=== PATIENT | female | born 1985 ===

== ENCOUNTER 2018-11-23 21:45 | Emergency (ER) | payer OTHER ==
--- NOTE | 2018-11-23 21:56 | EDPHY ---
H & P Time Seen by Provider: 11/23/18 21:55 HPI/ROS: CHIEF COMPLAINT: Fever, cold symptoms, facial pain HISTORY OF PRESENT ILLNESS: 33-year-old female presents reporting that she has had 5 days of the nasal congestion, sinus pain, facial pain, headache, and fevers. Slight sore throat which has improved. No significant coughing. No nausea or vomiting. Patient has history of seasonal allergies and uses Flonase and Estrellita on a daily basis. She has also recently started on a allergy therapy to desensitized her to various tree pollens. She states when she does this therapy, sometimes her sinus congestion symptoms are worsened. Also reports some pain in her right ear. She denies chest pain or shortness of breath, no palpitations, vomiting, diarrhea, urinary complaints, or lightheadedness. She did get a flu vaccination this year. REVIEW OF SYSTEMS: A comprehensive 10 system review of systems was reviewed and is otherwise negative aside from elements mentioned in the history of present illness and medical decision making. PAST MEDICAL HISTORY: Allergies SOCIAL HISTORY: Nonsmoker, no marijuana, no illicit drugs, recently moved here from [facility] VITAL SIGNS: see nurse's notes. GENERAL: Well-developed, well-nourished, in no acute distress. Chatty, conversant, sounds congested. HEENT: Atraumatic Eyes: PERRL, EOMI, no conjunctival injection. Tenderness to percussion across the frontal sinuses and maxillary sinuses. Ears: Right TM is partially occluded, left TM is clear. Nose: No discharge. Mouth: moist mucous membranes. Pharynx: Slight erythema, no exudates, no swelling, no abscess. Uvula is midline. NECK: Supple, no adenopathy, no meningismus, no tenderness. Negative Kernig's and Brudzinski's. LUNGS: Clear to auscultation bilaterally, no wheezes, rhonchi or rales. CARDIAC: Regular rate and rhythm, no rubs, murmurs or gallops. ABDOMEN: Soft, nontender, bowel sounds normal. BACK: No CVA tenderness. EXTREMITIES: Normal, no edema, FROM. NEURO: Alert and oriented, grossly nonfocal. SKIN: Warm and dry, no rash. PSYCHIATRIC: Normal mentation, no agitation. Constitutional: Initial Vital Signs Temperature (C) 36.7 C 11/23/18 22:01 Heart Rate 82 02/03/19 22:01 Respiratory Rate 16 11/23/18 22:01 Blood Pressure 126/82 H 11/23/18 22:01 O2 Sat (%) 99 11/23/18 22:01 O2 Delivery Mode Room Air Allergies/Adverse Reactions: No Known Allergies Allergy (Unverified 11/23/18 22:00) Home Medications: Medication Instructions Recorded Amoxicillin Trihydrate [Amoxil] 500 mg PO TID 7 Days cap 11/23/18 Fluconazole [Diflucan] 200 mg PO ONCE #1 tablet 11/23/18 Fluticasone Nasal [Flonase Nasal 11/23/18 [place]] P-EPHED HCL/FEXOFENADINE HCL 11/23/18 [ESTRELLITA-D 12 HOUR TABLET] Medical Decision Making ED Course/Re-evaluation: 33-year-old female presenting with fever and significant facial pain and congestion. She did receive a flu vaccination this year. No symptoms suggestive of strep throat. She does complain about pain in her right ear, partially occluded with cerumen. Patient was placed on amoxicillin 500 mg three times daily x7 days. She was also advised to use a decongestant. Please see the discharge instructions. She requested a prescription for Diflucan as she typically will develop be significant yeast infection after having antibiotics. Differential Diagnosis: Differential diagnosis of the patient's symptom complex was considered including but not limited to viral upper respiratory infection, sinusitis, otitis media, meningitis, viral pharyngitis, strep pharyngitis, influenza, and mononucleosis. Departure - Departure Disposition: Home, Routine, Self-Care Clinical Impression: Sinusitis Qualifiers: Sinusitis location: unspecified location Chronicity: acute Recurrence: non- recurrent Qualified Code(s): J01.90 - Acute sinusitis, unspecified Headache Qualifiers: Headache type: unspecified Headache chronicity pattern: acute headache Intractability: not intractable Qualified Code(s): R51 - Headache Condition: Good Instructions: Sinusitis (ED) Additional Instructions: You been given a prescription of amoxicillin to treat your sinusitis. Please take this as directed. Please continue to use your Flonase nasal spray. This is available over-the- counter. Use as directed. Sinusitis will not clear significantly without the use of decongestants. Please obtain a [id number] decongestant such as Sudafed. Drink plenty of fluid with this decongestant. Decongestants may keep you awake at night. Please take Tylenol or ibuprofen for headache pain and facial pain. Mainstay of therapy will be to drink plenty of fluids, control your symptoms with [id number] medications, and get plenty of rest. Return to the emergency department or follow up with primary care physician if your symptoms are worsening despite the above treatment, if you develop shortness of breath, if you are unable to drink fluids secondary to throat pain or other issues, if you developed, vomiting, diarrhea, or other concerns. You may use the Diflucan when you finished your amoxicillin. Referrals: Patient,NotPresent [Primary Care Provider] - As per Instructions Prescriptions: Amoxicillin Trihydrate [Amoxil] 500 mg PO TID 7 Days cap Fluconazole [Diflucan] 200 mg PO ONCE #1 tablet
[2018-11-23 22:03] VITALS: BP 126/82
== END 2018-11-23 22:30 | disposition home or self-care (01) ==
LOC: CED 21:45
DX: J01.90 Acute sinusitis, unspecified (principal); R51 Headache
CPT/HCPCS: 99284-ER